=== PATIENT | male | born 1945 | race Caucasian/White ===

== ENCOUNTER → 2019-08-20 | Outpatient (CLI) | payer OTHER ==
[~2019-08-20] MED LIST: ACET325T9 PO; ATOR40TA59 PO; BACL20TA PO; CELE100C PO; DICL100G18 TP; DOCU-109 PO; FLUO20TA11 PO; LORA10TA55 PO; LOSA50TA86 PO; METO50TA6 PO; MONT10TA80 PO; RIVA20TA2 PO; SENN8.8S5 PO; TRAZ-120 PO
[2019-08-20 09:18] VITALS: BP 158/67
== END | disposition home or self-care (01) ==
LOC: SURG 09:00
PROVIDERS: ATTEND Anesthesiology Pain Medicine
DX: M54.5 Low back pain (principal); M79.604 Pain in right leg; M79.605 Pain in left leg; I10 Essential (primary) hypertension; Z86.73 Personal history of transient ischemic attack (TIA), and cerebral infarction without residual deficits; Z79.899 Other long term (current) drug therapy; Z79.84 Long term (current) use of oral hypoglycemic drugs
CPT/HCPCS: 99204

== ENCOUNTER → 2019-09-24 | Outpatient (CLI) | payer OTHER ==
[~2019-09-24] MED LIST changes: +0.9 % SODIUM CHLORIDE 10 ML VIAL ONE; +IOHEXOL 300 MG/ML 50 ML VIAL. ONE; +LIDOCAINE 1% PF 30 ML VIAL. ONE; +methylPREDNISolone ACETATE 80 MG/ML VIAL. ONE
[2019-09-24 14:54] VITALS: BP 147/65
== END ==
LOC: SURG 13:16
PROVIDERS: ATTEND Anesthesiology Pain Medicine
DX: M54.16 Radiculopathy, lumbar region (principal); I10 Essential (primary) hypertension; Z86.73 Personal history of transient ischemic attack (TIA), and cerebral infarction without residual deficits; Z79.01 Long term (current) use of anticoagulants
CPT/HCPCS: 62323; J1040; J2001; Q9967

== ENCOUNTER → 2020-09-21 | Day surgery (SDC) | payer OTHER ==
[~2020-09-21] MED LIST changes: -0.9 % SODIUM CHLORIDE 10 ML VIAL ONE; -IOHEXOL 300 MG/ML 50 ML VIAL. ONE; -LIDOCAINE 1% PF 30 ML VIAL. ONE; +LORA-52 PO; -LORA10TA55 PO; -methylPREDNISolone ACETATE 80 MG/ML VIAL. ONE
[2020-09-21 10:33] VITALS: BP 140/79
== END | disposition home or self-care (01) ==
LOC: SURG 10:17
PROVIDERS: ATTEND Anesthesiology
DX: M54.5 Low back pain (principal); M54.16 Radiculopathy, lumbar region; I10 Essential (primary) hypertension; Z79.899 Other long term (current) drug therapy; Z79.01 Long term (current) use of anticoagulants; Z91.030 Bee allergy status; Z86.73 Personal history of transient ischemic attack (TIA), and cerebral infarction without residual deficits
CPT/HCPCS: 99214; G0463

== ENCOUNTER 2021-05-12 10:27 | Emergency (ER) | payer MEDICARE, BC ==
[~2021-05-12] VITALS: Ht 177.8 cm; Wt 100.0 kg
[~2021-05-12 10:27] MED LIST changes: +SENN8.8S13 PO; -SENN8.8S5 PO
--- NOTE | 2021-05-12 10:41 | PHYS DOC ---
General Adult HPI: HPI: Patient is a 75-year-old male brought by EMS from home. Patient's family had called because he was having altered mental status. Also had report of blood in urine and decreased urination. Family stated that he has been confused since yesterday, was just discharged from [facility] [place] 2 days ago after staying there for couple months. Patient had previously been at the [facility] for pneumonia and a urinary tract infection and had just finished antibiotics yesterday. Patient states that he just feels tired and that he has blood in his urine chronically. Per family they states that since yesterday he has been having some confusion and tremors. Her daughter states that is what he could not recognize where she was. She has had yesterday he was hallucinating and thought he saw a dog jump on the cabinet. Per her report he was at [facility] [place] for just over 6 weeks. Was hospitalized at the [facility] for UTI and pneumonia. He has a history of chronic UTIs with a similar change in mental status presentation Review of Systems: Review of Systems: All other systems within normal limits except for as noted in the HPI Allergies: Allergies: Allergies Coded Allergies Type Severity Reaction Last Updated Verified bee venom protein (honey bee) Allergy Severe Anaphylaxis 09/24/19 Yes Physical Exam: PE: Constitutional: Well developed, well nourished, no acute distress, non-toxic appearance. [] HENT: Normocephalic, atraumatic, bilateral external ears normal, nose normal. [] Eyes: PERRLA, conjunctiva normal, no discharge. [] Neck: No rigidity, supple, no stridor. [] Cardiovascular: Regular rate and rhythm, brisk cap refill [] Lungs & Thorax: Non labored symmetric respirations, no tachypnea or respiratory distress [] Abdomen: Soft, nondistended. Skin: Warm, dry, no erythema, no rash. [] Back: Unremarkable Extremities: No deformities, range of motion grossly intact, no lower extremity edema [] Neurologic: Alert and oriented X 3, no focal deficits noted. [] Psychologic: Affect normal, judgement normal, mood normal. [] EKG: EKG: Sinus rhythm, heart rate 50 bpm, left axis deviation, flattened T waves [] Radiology/Procedures: Radiology/Procedures: [][address] [address] IMAGING REPORT Signed PATIENT: DALE WEISS GACCOUNT: [id number] : 1945 LOCATION: ER AGE: 75 SEX: M EXAM STATUS: REG ER ORD. PHYSICIAN: KILEY NIXON MD REASON: HEMATURIA, ABDOMINAL PAIN PROCEDURE: CT ABD PELV W/ IV CONTRST ONLY INDICATION: Reason: HEMATURIA, ABDOMINAL PAIN / Spl. Instructions: / History: COMPARISON: October 27, 2020 TECHNIQUE: Axial CT images were obtained through the abdomen and pelvis with intravenous contrast. One or more of the following individualized dose reduction techniques were utilized for this examination: 1. Automated exposure control; 2. Adjustment of the mA and/or kV according to patient size; 3. Use of iterative reconstruction technique. FINDINGS: there is some peripheral reticulation within the partially visualized lungs with mild interstitial and groundglass opacity most prominent at lung bases. Vascular: Partial visualization of calcific atherosclerosis throughout the thoracic aorta with coronary artery calcific atherosclerosis and calcified plaque seen throughout the vasculature of the abdomen. Hepatobiliary: Gallstones within gallbladder. Liver is prominent in size. Pancreas: No peripancreatic edema. Spleen: Lobulated appearance. Renal/Bladder: Mild left-sided hydronephrosis with a 2 mm stone at the left mid ureter. Catheter is seen within the urinary bladder which is decompressed with prominent wall. Gastrointestinal: No dilated loops of bowel to suggest obstruction. There is some laxity of the anterior abdominal wall as well as a small fat-containing umbilical hernia. The appendix measures approximately 7 mm and was previously approximately 6 mm. Definite adjacent inflammatory changes is not seen. Fat-containing inguinal hernias. Prostate calcifications. Degenerative changes the spine with scoliotic curvature as well as multilevel central canal and neural foraminal stenosis. Degenerative changes the bilateral hips. Grade 1 anterolisthesis of L4 on 5. IMPRESSION: * Mild left-sided hydronephrosis and prominence the left proximal ureter with a left mid ureter stone. * The appendix is borderline dilated with mild prominence the wall however there is no definite adjacent inflammatory changes therefore this does not fulfill all of the CT criteria for appendicitis. Would still correlate with symptoms in the region given that the appendix is slightly increased from prior. * Repeat demonstration of some reticular and groundglass opacities at the lungs. * Gallstones seen. * Urinary bladder is decompressed with prominence of the wall. This wall prominence could be from lack of distention but pathologic causes such as cy stitis or a lesion along the bladder wall cannot be reliably excluded given the decompressed bladder Electronically signed by: Ananya Vaughn MD (05/12/2021 12:51 PM) [id number] DICTATED AND SIGNED BY: ANANYA VAUGHN MD DATE: 05/12/21 1229 CC: KILEY NIXON MD; NGHIA DE LA GARZA MD ~MTH0 0 Heart Score: C/O Chest Pain: No HEART Score for Chest Pain: HEART Score for Chest Pain Response (Comments) Value History Slighlty/Non-Suspicious 0 ECG Nonspecific Repolarizatio 1 Age > 65 2 Risk Factors 1 or 2 Risk Factors 1 Troponin < Normal Limit 0 Total 4 Risk Factors: Risk Factors: DM, Current or recent (<one month) smoker, HTN, HLP, family history of CAD, obesity. Risk Scores: Score 0 - 3: 2.5% MACE over next 6 weeks - Discharge Home Score 4 - 6: 20.3% MACE over next 6 weeks - Admit for Clinical Observation Score 7 - 10: 72.7% MACE over next 6 weeks - Early Invasive Strategies Course & Med Decision Making: Course & Med Decision Making Pertinent Labs and Imaging studies reviewed. (See chart for details) Patient with infected nephrolithiasis. Since urology not available at our facilities discussed with patient where they want to go, requesting transfer to [facility] since he has been treated for kidney stones at the [facility] system before. Patient started on antibiotics here and transferred to [facility] [] Sabina Disclaimer: Sabina Disclaimer: This electronic medical record was generated, in whole or in part, using a voice recognition dictation system. Departure Departure: Impression: Primary Impression: Left nephrolithiasis Additional Impressions: UTI (urinary tract infection) AMS (altered mental status) Disposition: 02 SHORT TERM HOSPITAL Condition: STABLE Referrals: NGHIA DE LA GARZA MD (PCP) KILEY NIXON MD May 12, 2021 10:41
--- NOTE | 2021-05-12 10:54 | RAD ---
INDICATION: Reason: ALTERED MENTAL STATUS / Spl. Instructions: / History: COMPARISON: None. FINDINGS: Single view of chest obtained. Enlarged cardiomediastinal silhouette. Mild interstitial opacities bilaterally with most focal component at the lung bases. Calcific atherosclerosis. Degenerative changes of the spine. IMPRESSION: * Mild interstitial opacities bilaterally with more focal component at lung bases. Could be secondar y to edema or interstitial infiltrate. Would correlate with infectious symptoms. * Enlarged cardiac mediastinal silhouette with calcific atherosclerosis. Electronically signed by: Royal Carlson MD (05/12/2021 10:52 AM) [id number]
[2021-05-12 10:59] VITALS: BP 115/58
[2021-05-12 11:05] LABS: BASO # 0.1 x10^3/uL (0.0-0.2); BASO % 1 % (0-3); EOS # 0.3 x10^3/uL (0.0-0.7); EOS % 3 % (0-3); HEMATOCRIT 39.7 % (39.0-53.0); HEMOGLOBIN 13.1 g/dL (13.0-17.5); LYMPH # 1.7 x10^3/uL (1.0-4.8); LYMPH % 16 % (24-48); MEAN CORPUSCULAR HEMOGLOBIN 30 pg (25-35); MEAN CORPUSCULAR HGB CONC 33 g/dL (31-37); MEAN CORPUSCULAR VOLUME 89 fL (79-100); MONO # 0.9 x10^3/uL (0.0-1.1); MONO % 9 % (0-9); NEUT # 7.8 x10^3uL (1.8-7.7); NEUT % 73 % (31-73); PLATELET COUNT 240 x10^3/uL (140-400); RED BLOOD COUNT 4.44 x10^6/uL (4.30-5.70); RED CELL DISTRIBUTION WIDTH 15.2 % (11.5-14.5); WHITE BLOOD COUNT 10.7 x10^3/uL (4.0-11.0)
[2021-05-12 11:27] LABS: CREATININE 1.4 mg/dL (0.7-1.3); GFR 49.5; POTASSIUM 4.6 mmol/L (3.5-5.1)
[2021-05-12 11:39] LABS: ALBUMIN/GLOBULIN RATIO 0.6 (1.0-1.7); MAGNESIUM 2.3 mg/dL (1.8-2.4); PHOSPHORUS 4.1 mg/dL (2.6-4.7); TOTAL BILIRUBIN 0.4 mg/dL (0.2-1.0); TOTAL PROTEIN 7.8 g/dL (6.4-8.2)
[2021-05-12] MEDS ORDERED: IOHEXOL 300 MG/ML 75 ML VIAL. ONE (12:10)
[2021-05-12] MEDS ORDERED: CONTRAST GIVEN. MC PRN (12:15)
[2021-05-12] MEDS ORDERED: IOHEXOL 300 MG/ML 75 ML VIAL. IV ONE (12:15)
[2021-05-12 12:34] LABS: COLOR,URINE BROWN
[2021-05-12 12:35] LABS: CLARITY,URINE BLOODY; RBC,URINE 20-40 /HPF (0-2); WBC,URINE >40 /HPF (0-4)
[2021-05-12 12:36] LABS: AMORPHOUS SEDIMENT,UR PRESENT /HPF; BACTERIA,URINE FEW /HPF (0-FEW); SQUAMOUS EPITHELIAL CELL,UR FEW /LPF
--- NOTE | 2021-05-12 12:54 | RAD ---
INDICATION: Reason: HEMATURIA, ABDOMINAL PAIN / Spl. Instructions: / History: COMPARISON: October 27, 2020 TECHNIQUE: Axial CT images were obtained through the abdomen and pelvis with intravenous contrast. One or more of the following individualized dose reduction techniques were utilized for this examinat ion: 1. Automated exposure control; 2. Adjustment of the mA and/or kV according to patient size; 3 . Use of iterative reconstruction technique. FINDINGS: there is some peripheral reticulation within the partially visualized lungs with mild interstitial a nd groundglass opacity most prominent at lung bases. Vascular: Partial visualization of calcific atherosclerosis throughout the thoracic aorta with lopez ry artery calcific atherosclerosis and calcified plaque seen throughout the vasculature of the abdome n. Hepatobiliary: Gallstones within gallbladder. Liver is prominent in size. Pancreas: No peripancreatic edema. Spleen: Lobulated appearance. Renal/Bladder: Mild left-sided hydronephrosis with a 2 mm stone at the left mid ureter. Catheter is s een within the urinary bladder which is decompressed with prominent wall. Gastrointestinal: No dilated loops of bowel to suggest obstruction. There is some laxity of the anter ior abdominal wall as well as a small fat-containing umbilical hernia. The appendix measures approxim ately 7 mm and was previously approximately 6 mm. Definite adjacent inflammatory changes is not seen. Fat-containing inguinal hernias. Prostate calcifications. Degenerative changes the spine with scoliotic curvature as well as multilevel central canal and neura l foraminal stenosis. Degenerative changes the bilateral hips. Grade 1 anterolisthesis of L4 on 5. IMPRESSION: * Mild left-sided hydronephrosis and prominence the left proximal ureter with a left mid ureter sto ne. * The appendix is borderline dilated with mild prominence the wall however there is no definite lucien cent inflammatory changes therefore this does not fulfill all of the CT criteria for appendicitis. Wo uld still correlate with symptoms in the region given that the appendix is slightly increased from pr ior. * Repeat demonstration of some reticular and groundglass opacities at the lungs. * Gallstones seen. * Urinary bladder is decompressed with prominence of the wall. This wall prominence could be from la ck of distention but pathologic causes such as cystitis or a lesion along the bladder wall cannot be reliably excluded given the decompressed bladder Electronically signed by: Royal Carlson MD (05/12/2021 12:51 PM) [id number]
[2021-05-12] MEDS ORDERED: cefTRIAXone SODIUM 1 GM VIAL ONE (14:28)
[2021-05-12] MEDS ORDERED: IV NORMAL SALINE 50ML 50 ML ONE (14:28)
[2021-05-12] MEDS ORDERED: IV NORMAL SALINE 250ML 250 ML ONE (14:29)
--- NOTE | 2021-05-12 18:41 | EKG ---
[address] [address] Test Date: 2021-05-12 Test Time: 10:24:45 Pat Name: DALE WEISS Department: Room: Gender: M Accounting Practice Manager: [place] : 1945 Requested By: KILEY NIXON Order Number: [id number] Reading MD: Luis Coker MD Measurements Intervals [place] Rate: 50 P: 28 NV: 192 QRS: 0 QRSD: 100 T: 24 QT: 548 QTc: 503 Interpretive Statements SR RBBB CONSIDER INFERIOR ISCHEMIA Electronically Signed On 05-15-2021 11:19:51 CDT by Luis Coker MD
== END 2021-05-12 14:55 | disposition short-term general hospital (02) ==
LOC: ER 10:27
DX: N20.0 Calculus of kidney (principal); N39.0 Urinary tract infection, site not specified; R41.82 Altered mental status, unspecified
CPT/HCPCS: 36415; 71045; 74177; 80053; 81001; 83735; 83880; 84100; 84484; 85025; 87077; 87086; 93005; 96365; 99285; G0480; J0696; Q9967

== ENCOUNTER → 2021-09-21 | Day surgery (SDC) | payer MEDICARE, BC ==
[~2021-09-21] MED LIST changes: +0.9 % SODIUM CHLORIDE 10 ML VIAL. ONE; +DEXAMETHASONE SOD PHOS 10 MG/ML VIAL. ONE; +IOHEXOL 300 MG/ML 50 ML VIAL. ONE; +LIDOCAINE 1% PF 30 ML VIAL. ONE
[2021-09-21 11:11] VITALS: BP 137/61
== END | disposition home or self-care (01) ==
LOC: SURG 10:10
PROVIDERS: ATTEND Anesthesiology
DX: M54.16 Radiculopathy, lumbar region (principal); I10 Essential (primary) hypertension; Z86.73 Personal history of transient ischemic attack (TIA), and cerebral infarction without residual deficits; Z79.899 Other long term (current) drug therapy; M96.1 Postlaminectomy syndrome, not elsewhere classified; G81.90 Hemiplegia, unspecified affecting unspecified side; Z88.8 Allergy status to other drugs, medicaments and biological substances; Z91.030 Bee allergy status; Z87.440 Personal history of urinary (tract) infections
CPT/HCPCS: 62323; A4209; A4657; A4930; J1100; Q9967